=== PATIENT | female | born 1970 | race Caucasian/White ===

== ENCOUNTER 2017-07-16 11:30 | Day surgery (SDC) | payer OTHER ==
[~2017-07-16 11:30] MED LIST: Lactated Ringers 1,000 ML IV SCH
[2017-07-16] MEDS ORDERED: fentaNYL 100 MCG/2 ML SDV IV ONE (11:31)
[2017-07-16] MEDS ORDERED: HYDROmorphone 2 MG/ML SDV IV ONE (11:31)
[2017-07-16] MEDS ORDERED: Dextrose 5%-Lactated Ringers 1,000 ML IV ONE (11:31)
[2017-07-16] MEDS ORDERED: Propofol 200 MG/20 ML SDV IV ONE ×2 (11:31)
[2017-07-16] MEDS ORDERED: Ketorolac 30 MG/ML SDV IVPUSH ONE (11:31)
[2017-07-16] MEDS ORDERED: Acetaminophen 1,000 MG/100 ML Infusion Bottle IV ONE (11:31)
[2017-07-16] MEDS ORDERED: ceFAZolin 1 GM Vial IV ONE (11:31)
[2017-07-16] MEDS ORDERED: Scopolamine 1.5 MG Transdermal Patch TOP ONE (11:31)
[2017-07-16] MEDS ORDERED: diphenhydrAMINE 50 MG/ML SDV IV ONE (11:31)
[2017-07-16] MEDS ORDERED: Ondansetron 4 MG/2 ML SDV IVPUSH ONE (11:31)
[2017-07-16] MEDS ORDERED: Rocuronium 100 MG/10 ML MDV IV ONE (11:31)
[2017-07-16] MEDS ORDERED: Glycopyrrolate 0.2 MG/ML 5 ML MDV IV ONE (11:31)
[2017-07-16] MEDS ORDERED: Neostigmine Methylsulfate 10 MG/10 ML MDV IVPUSH ONE (11:31)
[2017-07-16] MEDS ORDERED: Promethazine 25 MG/ML SDV IV ONE (11:31)
[2017-07-16] MEDS ORDERED: Lidocaine 2% 100 MG/5 ML Syringe IVPUSH ONE (11:31)
[2017-07-16] MEDS ORDERED: Dexamethasone 4 MG/ML 5 ML MDV IVPUSH ONE (11:31)
[2017-07-16] MEDS ORDERED: cefOXitin 2 GM in Sodium Chloride 0.9% 100 ML IV ONE (12:45)
[2017-07-16] MEDS ORDERED: cefOXitin 2 GM Vial IV ONE (12:45)
[2017-07-16] MEDS ORDERED: Bupivacaine 0.5%/EPINEPHrine 1:200,000 50 ML MDV INJECT ONE (13:21)
--- NOTE | 2017-07-16 14:35 | PCM.OPNOTE ---
- General Post-Op/Procedure Note Date of Surgery/Procedure: 07/16/17 Operative Procedure(s): Laproscopic cholecystectomy Findings: Chronically inflamed gallbladder with stone Pre Op Diagnosis: Chronic Cholecystitis with Cholelithiasis Post-Op Diagnosis: Same Anesthesia Technique: General ET Tube Primary Surgeon: Otto Edwards Pathology: Gallbladder Output, Urine Amount: 0 EBL in mLs: 25 Complications: None Condition: Good
[2017-07-16] MEDS ORDERED: hydrOXYzine HCl 50 MG/ML SDV IM ONE (15:12)
--- NOTE | 2017-07-16 21:55 | OR ---
DATE OF OPERATION: 07/16/2017 SURGEON: Otto Edwards MD PREOPERATIVE DIAGNOSIS: Chronic cholecystitis with cholelithiasis. POSTOPERATIVE DIAGNOSIS: Chronic cholecystitis with cholelithiasis. OPERATION PERFORMED: Laparoscopic cholecystectomy. INDICATIONS FOR SURGERY: This 47-year-old female has been having increasing difficulty with symptoms of a right upper quadrant abdominal pain. This pain is becoming more consistent for her. Evaluation has identified cholelithiasis which is felt to be the source of her symptoms and she comes for cholecystectomy. FINDINGS: Gallbladder shows evidence of chronic inflammation. There were some omental adhesions to its undersurface and the tissue adhering to the gallbladder is mildly inflamed. The adjacent liver appears normal. No other intraabdominal abnormalities are noted except that the patient has had a previous hysterectomy. DESCRIPTION OF PROCEDURE: The patient was taken to the operating room. She was given general endotracheal anesthesia and the abdomen was sterilely prepped and draped. A supraumbilical stab wound incision was made. Through this, a Veress needle was inserted and pneumoperitoneum via this needle to a pressure of 15 mmHg was achieved with carbon dioxide. The Veress needle was then replaced with a 12 mm trocar into which the 5 mm 0 degree laparoscopic camera was inserted. Under direct visualization, 5 mm trocars were placed in the subxiphoid midline and in 2 areas of the right abdomen. All trocar sites were infiltrated with Marcaine prior to incision. Intra-abdominal inspection was carried out and attention was turned to the gallbladder. It was secured with grasping forceps placed through the lateral trocars and retracted superiorly and anteriorly. Fatty tissue adherent to the undersurface of the gallbladder was carefully taken down with blunt dissection and then the peritoneum and fatty tissue overlying the cystic duct is cleared. The main cystic artery is noted to be closely adherent to the cystic duct. These are and the cystic artery was doubly clipped and divided. With placement of these clips, there was some smaller vascular branches causing some bleeding and an additional clip was placed to control this. The cystic duct is clearly identified, it was milked and then it too was doubly clipped and divided near the gallbladder with great care being used to avoid any possible injury to the common bile duct. Additional dissection was used to separate the lower part of the gallbladder from the undersurface of the liver. Some additional small vascular branches were controlled with clips during this dissection. The gallbladder was then dissected free from the undersurface of the liver using the hook cautery device. Once it was completely freed, it was extracted through the umbilical trocar site. This did require opening the gallbladder extra-abdominally and draining the bile to collapse the gallbladder. Re-inspection of the gallbladder bed was carried out. Copious irrigation of the region was performed and cautery was used to assist in assuring hemostasis in the gallbladder bed. A piece of Surgicel was also placed to supplement this cautery. With no sign of bleeding or any other complication, the trocars were removed under direct visualization and the pneumoperitoneum was evacuated. The fascia of the umbilical trocar site was closed with an 0 Vicryl suture. Wounds were irrigated with Betadine and saline solution. Skin incisions were approximated with interrupted 4-0 Vicryl in a subcuticular stitch. Steri-Strips and benzoin were placed. Antibiotic ointment and sterile dressings were applied. The patient was then awakened, extubated, and taken from the operating room in satisfactory condition. ESTIMATED BLOOD LOSS: 25 mL. COMPLICATIONS: None. PROGNOSIS: Good. /[id number] LOLY/SAMUELL
--- NOTE | 2017-07-19 10:35 | HP ---
ADMISSION DATE: 07/16/2017 PREOPERATIVE NOTE This is a 47-year-old female with known cholelithiasis, comes today for cholecystectomy. She has been having symptoms of intermittent right upper quadrant abdominal pain. Ultrasound has confirmed cholelithiasis, and this was felt to be the source of her symptoms. She believes the symptoms have recently been worsening, with them being more consistent. I have discussed the proposed operative procedure with the patient. I have reviewed with her indications, options, and risks. She agrees to have this performed. There is no recent significant change in her health status as compared to her recent history and physical. /[id number] LOLY/JACLYN
== END 2017-07-16 18:43 | disposition home or self-care (01) ==
LOC: FB.SDS 11:30 → FB.MS 15:37 → FB.SDS 18:43
PROVIDERS: ATTEND Surgery
DX: K80.10 Calculus of gallbladder with chronic cholecystitis without obstruction (principal); I10 Essential (primary) hypertension; Z79.899 Other long term (current) drug therapy; Z90.710 Acquired absence of both cervix and uterus; Z98.890 Other specified postprocedural states
CPT/HCPCS: 47562; 88304; A9270; J0131; J0690; J1100; J1170; J1200; J1885; J2405; J2550; J2704; J2710; J3010; J3410; J7042; J7120